=== PATIENT | female | born 1975 | race African-American/Black ===

== ENCOUNTER 2021-08-02 17:48 | Emergency (ER) | payer SELFPAY ==
[~2021-08-02] VITALS: Ht 167.6 cm; Wt 104.3 kg
[~2021-08-02 17:48] MED LIST: CLINDAMYCIN HC300 MG PO; MACROBID100 M1 PO; NKHM; PERCOCET 325 MG1 TA2 PO; PHENERGAN25 M1 PO; PYRIDIUM100 MG PO; TRAMADOL HCL50 MG PO; VICODIN 5/500 505 MG PO; WYMOX500 MG PO; ZOFRAN ODT4 MG SL
[2021-08-02] MEDS ORDERED: ASPIRIN CHEWABL81 MG PO (18:13)
[2021-08-06] MEDS ORDERED: HYDROCODONE-AC1 EAC2 PO (11:55)
== END 2021-08-03 00:40 | disposition home or self-care (01) ==
LOC: ED 17:48
DX: S82.852A Displaced trimalleolar fracture of left lower leg, initial encounter for closed fracture (principal); Z20.822 Contact with and (suspected) exposure to COVID-19; W10.8XXA Fall (on) (from) other stairs and steps, initial encounter; Y93.89 Activity, other specified; Y92.89 Other specified places as the place of occurrence of the external cause; Y99.8 Other external cause status

== ENCOUNTER → 2021-08-14 | Day surgery (SDC) | payer SELFPAY ==
[2021-08-06 11:53] VITALS: BP 132/79
[2021-08-14] VITALS (17 sets, daily range): BP systolic 114–153; BP diastolic 67–92
[~2021-08-14] VITALS: Ht 170.1 cm; Wt 101.2 kg
[~2021-08-14] MED LIST changes: +ASPIRIN CHEWABL81 MG PO; +HYDROCODONE-AC1 EAC2 PO
== END | disposition home or self-care (01) ==
LOC: SDC 08-06 11:00
PROVIDERS: ATTEND Podiatrist
DX: S82.852A Displaced trimalleolar fracture of left lower leg, initial encounter for closed fracture (principal); I10 Essential (primary) hypertension; F41.9 Anxiety disorder, unspecified; J45.909 Unspecified asthma, uncomplicated; F17.210 Nicotine dependence, cigarettes, uncomplicated; W19.XXXA Unspecified fall, initial encounter; Y93.89 Activity, other specified; Y92.89 Other specified places as the place of occurrence of the external cause; Y99.8 Other external cause status; Z20.822 Contact with and (suspected) exposure to COVID-19

== ENCOUNTER → 2021-08-21 | Outpatient (CLI) | payer SELFPAY | END | disposition home or self-care (01) | LOC: US 16:30 | PROVIDERS: ATTEND Nurse Practitioner | DX: M79.604 Pain in right leg (principal) ==

== ENCOUNTER 2022-04-19 08:02 | Emergency (ER) | payer MEDICAID ==
[~2022-04-19] VITALS: Ht 170.1 cm; Wt 90.7 kg
[2022-04-19 08:58] LABS: BASO # 0.1 10*3/uL (0.0-0.1); BASO % 0.4 % (0.0-1.0); EOS # 0.1 10*3/uL (0.0-0.4); EOS % 0.9 % (1.0-4.0); HEMATOCRIT 35.8 % (37.0-47.0); LYMPH # 0.8 10*3/uL (1.3-4.4); LYMPH % 5.1 % (27.0-41.0); MEAN CELL VOLUME 69.6 fl (81.0-99.0); MEAN CORPUSCULAR HGB 21.2 pg (27.0-31.0); MEAN CORPUSCULAR HGB CONC 30.4 g/dl (33.0-37.0); MEAN PLATELET VOLUME 9.2 fl (9.6-12.3); MONO # 0.7 10*3/uL (0.1-1.0); MONO % 4.4 % (3.0-9.0); NEUT # 14.2 10*3/uL (2.3-7.9); NEUT % 88.8 % (47.0-73.0); PLATELET COUNT AUTOMATED 279 10*3/uL (130-400); RED BLOOD COUNT 5.14 10*6/uL (4.10-5.10); RED CELL DISTRI WIDTH 20.4 % (0-14.5)
[2022-04-19 09:15] LABS: ALKALINE PHOSPHATASE 100 U/L (45-117); BUN 6 mg/dl (7-24); CREATININE 0.66 mg/dL (0.55-1.02); LIPASE 149 U/L (73-393); SGOT/AST 22 IU/L (3-35); SGPT/ALT 21 U/L (12-78); TOTAL PROTEIN 6.9 gm/dL (6.4-8.2)
[2022-04-19 09:23] LABS: IRON 21 ug/dL (50-170)
[2022-04-19 09:37] LABS: CHLORIDE 110 mmol/L (98-107); POTASSIUM 3.8 mmol/L (3.5-5.1); SODIUM 141 mmol/L (136-145)
[2022-04-19 09:50] LABS: BILIRUBIN Negative (Negative); BLOOD 1+ (Negative); CLARITY Cloudy (Clear); COLOR Yellow (Yellow); GLUCOSE Negative (Negative); KETONE Negative (Negative); LEUKO ESTERASE 2+ (Negative); NITRITE Negative (Negative); PH 5.5 (4.5-8.0)
[2022-04-19 10:01] LABS: BACTERIA 3+; EPITHELIAL CELLS 21-30; MUCOUS 1+; WBC 31-40 wbc/hpf (0-5)
[2022-04-19] MEDS ORDERED: IRON325 M1 PO (10:25)
[2022-04-19] MEDS ORDERED: TYLENOL325 M1 PO (10:26)
[2022-04-19] MEDS ORDERED: CYCLOBENZAPRINE10 MG PO (10:26)
[2022-04-19] MEDS ORDERED: NAPROXEN250 MG PO (10:26)
== END 2022-04-19 10:29 | disposition home or self-care (01) ==
LOC: ED 08:02
PROVIDERS: Emergency Medicine
DX: M54.9 Dorsalgia, unspecified (principal); D50.9 Iron deficiency anemia, unspecified; Z79.82 Long term (current) use of aspirin; Z90.89 Acquired absence of other organs

== ENCOUNTER 2025-03-27 14:08 | Inpatient (IN) | payer SELFPAY ==
[~2025-03-27] VITALS: Ht 170.1 cm; Wt 102.6 kg
[~2025-03-27 14:08] MED LIST changes: +CYCLOBENZAPRINE10 MG PO; +IRON325 M1 PO; +NAPROXEN250 MG PO; +TYLENOL325 M1 PO
[2025-03-27 14:24] VITALS: BP 184/96
[2025-03-27 14:53] LABS: BILIRUBIN Negative (Negative); BLOOD Negative (Negative); CLARITY Clear (Clear); COLOR Yellow (Yellow); KETONE Negative (Negative); LEUKO ESTERASE Trace (Negative); NITRITE Negative (Negative); PH 5.5 (4.5-8.0); SPECIFIC GRAVITY 1.010 (1.001-1.030); UROBILINOGEN 0.2 E.U./dl (0.0-1.0)
[2025-03-27 15:08] LABS: BACTERIA 1+; RBC 0-2 rbc/hpf (0-2); WBC 21-30 wbc/hpf (0-5)
[2025-03-27] MEDS ORDERED: SODIUM CHLORIDE 0.9% 1,000 ML IV ONE ×2 (15:35→18:10)
[2025-03-27 16:08] LABS: BASO # 0.1 10*3/uL (0.0-0.1); BASO % 0.8 % (0.0-1.0); EOS # 0.2 10*3/uL (0.0-0.4); EOS % 1.2 % (1.0-4.0); MEAN CELL VOLUME 78.1 fl (81.0-99.0); MEAN CORPUSCULAR HGB 26.5 pg (27.0-31.0); MEAN PLATELET VOLUME 10.6 fl (9.6-12.3); MONO # 1.4 10*3/uL (0.1-1.0); MONO % 8.2 % (3.0-9.0); NEUT # 13.8 10*3/uL (2.3-7.9); NEUT % 80.2 % (47.0-73.0); NUCLEATED RED BLOOD CELL 0.0 % (0.0-0.0); NUCLEATED RED BLOOD CELL 0.0 10*3/uL (0.0-0.0); PLATELET COUNT AUTOMATED 567 10*3/uL (130-400); RED CELL DISTRI WIDTH 16.1 % (0-14.5)
[2025-03-27 16:45] LABS: BUN 55.0 mg/dl (9-23)
[2025-03-27] MEDS ORDERED: AZITHROMYCIN 250 ML IV ONE (16:45)
[2025-03-27 17:54] LABS: BUN 50.0 mg/dl (9-23)
[2025-03-27 20:05] VITALS: BP 178/91
[2025-03-27] MEDS ORDERED: TEMAZEPAM 15 MG CAP PO PRN (20:20)
[2025-03-27] MEDS ORDERED: ACETAMINOPHEN 325 MG TAB PO PRN (20:20)
[2025-03-27] MEDS ORDERED: ACETAMINOPHEN 650 MG SUPP R PRN (20:20)
[2025-03-27] MEDS ORDERED: Ondansetron Hydrochloride 4 MG/2 ML VIAL IV PRN (20:20)
[2025-03-27] MEDS ORDERED: BISACODYL 5 MG TAB PO PRN (20:20)
[2025-03-27] MEDS ORDERED: BISACODYL 10 MG SUPP R PRN (20:20)
[2025-03-27] MEDS ORDERED: Acetaminophen/Hydrocodone 5 MG/325 MG TABLET PO PRN (20:20)
[2025-03-27] MEDS ORDERED: Albuterol Sulf/Ipratropium 3 ML VIAL NEB SCH (20:40)
[2025-03-27] MEDS ORDERED: AZITHROMYCIN 250 ML IV SCH (21:00)
[2025-03-27] MEDS ORDERED: Cefepime Hydrochloride 2 GM in SODIUM CHLORIDE 0.9% 50 ML IV SCH (21:00)
[2025-03-27 21:05] VITALS: BP 181/101
[2025-03-27] MEDS ORDERED: hydrALAZINE hydrochloride 20 MG/ML VIAL IV ONE (21:20)
[2025-03-27] MEDS ORDERED: HEPARIN SODIUM 5,000 UNIT/ML VIAL SC SCH (22:00)
[2025-03-27] MEDS ORDERED: GUAIFENESIN 600 MG TAB ER PO SCH (22:00)
[2025-03-27] MEDS ORDERED: Vancomycin Hydrochloride 1,000 MG in SODIUM CHLORIDE 0.9% 250 ML IV SCH (22:00)
[2025-03-27 22:20] VITALS: BP 183/92
[2025-03-28] VITALS: BP 138/61
[2025-03-28 06:39] LABS: MEAN CELL VOLUME 78.7 fl (81.0-99.0); MEAN CORPUSCULAR HGB 25.7 pg (27.0-31.0); MEAN PLATELET VOLUME 10.8 fl (9.6-12.3); NUCLEATED RED BLOOD CELL 0.0 % (0.0-0.0); NUCLEATED RED BLOOD CELL 0.0 10*3/uL (0.0-0.0); PLATELET COUNT AUTOMATED 557 10*3/uL (130-400); RED CELL DISTRI WIDTH 15.9 % (0-14.5)
[2025-03-28 07:04] LABS: BUN 49.0 mg/dl (9-23); FREE T4 0.95 ng/dl (0.89-1.76); LDL CHOLESTEROL 85.0 mg/dL (9-159); SGPT/ALT 54.0 U/L (5-49)
[2025-03-28 07:18] LABS: MANUAL DIFF REFLEX YES
[2025-03-28 08:00] VITALS: BP 168/82
[2025-03-28 08:08] LABS: BASOPHILS 1 % (0-1); PLATELET SUFFICIENCY HIGH (NORMAL)
[2025-03-28 08:45] LABS: VITAMIN D, 25-HYDROXY 13.1 ng/mL (30-100)
[2025-03-28] MEDS ORDERED: FUROSEMIDE 40 MG/4 ML VIAL IV SCH (10:00)
[2025-03-28] MEDS ORDERED: PRILOSEC20 M1 PO (11:19)
[2025-03-28 12:00] VITALS: BP 176/82
[2025-03-28] MEDS ORDERED: SODIUM CHLORIDE 0.9% 1,000 ML IV SCH (12:15)
[2025-03-28] MEDS ORDERED: OMEPRAZOLE 20 MG CAP PO SCH (15:20)
[2025-03-28] MEDS ORDERED: METOPROLOL SUCCINATE XR 25 MG TAB PO SCH (15:25)
[2025-03-28 16:00] VITALS: BP 172/87
[2025-03-28 20:00] VITALS: BP 160/77
[2025-03-29] VITALS: BP 167/81
[2025-03-29 05:06] LABS: ANTI-STREPTOLYSIN O AB 86.9 IU/mL (0.0-200.0)
[2025-03-29] MEDS ORDERED: OMEPRAZOLE 20 MG CAP PO SCH ×2 (06:00→10:00)
[2025-03-29 07:03] LABS: MEAN CELL VOLUME 80.0 fl (81.0-99.0); MEAN CORPUSCULAR HGB 25.9 pg (27.0-31.0); MEAN PLATELET VOLUME 10.7 fl (9.6-12.3); NUCLEATED RED BLOOD CELL 0.0 % (0.0-0.0); NUCLEATED RED BLOOD CELL 0.0 10*3/uL (0.0-0.0); PLATELET COUNT AUTOMATED 621 10*3/uL (130-400); RED CELL DISTRI WIDTH 16.0 % (0-14.5)
[2025-03-29 07:04] LABS: MANUAL DIFF REFLEX YES
[2025-03-29 07:17] LABS: BUN 43 mg/dl (9-23); SGPT/ALT 38 U/L (5-49)
[2025-03-29 07:57] LABS: PLATELET SUFFICIENCY HIGH (NORMAL)
[2025-03-29 08:00] VITALS: BP 173/80
[2025-03-29] MEDS ORDERED: BISACODYL 5 MG TAB PO ONE (09:35)
[2025-03-29] MEDS ORDERED: Cholecalciferol 5,000 IU CAP (125 MCG) PO SCH (10:00)
[2025-03-29] MEDS ORDERED: FOLIC ACID 1 MG TAB PO SCH (10:00)
[2025-03-29] MEDS ORDERED: METOPROLOL SUCCINATE XR 25 MG TAB PO ONE (11:25)
[2025-03-29 11:54] VITALS: BP 177/82
[2025-03-29 16:00] VITALS: BP 187/96
[2025-03-29 20:00] VITALS: BP 179/87
[2025-03-30] VITALS: BP 178/88
[2025-03-30 03:00] VITALS: BP 166/83
[2025-03-30 06:35] LABS: MEAN CELL VOLUME 81.3 fl (81.0-99.0); MEAN CORPUSCULAR HGB 26.0 pg (27.0-31.0); MEAN PLATELET VOLUME 10.7 fl (9.6-12.3); NUCLEATED RED BLOOD CELL 0.0 % (0.0-0.0); NUCLEATED RED BLOOD CELL 0.0 10*3/uL (0.0-0.0); PLATELET COUNT AUTOMATED 617 10*3/uL (130-400); RED CELL DISTRI WIDTH 16.1 % (0-14.5)
[2025-03-30 06:37] LABS: MANUAL DIFF REFLEX YES
[2025-03-30 07:04] LABS: BUN 33.0 mg/dl (9-23)
[2025-03-30 07:09] LABS: PLATELET SUFFICIENCY HIGH (NORMAL)
[2025-03-30 08:00] VITALS: BP 182/92
[2025-03-30] MEDS ORDERED: MAGNESIUM SULFATE 100 ML IV ONE (08:00)
[2025-03-30] MEDS ORDERED: METOPROLOL SUCCINATE XR 50 MG TAB PO SCH (10:00)
[2025-03-30 12:00] VITALS: BP 161/89
[2025-03-30] MEDS ORDERED: MAGNESIUM OXID400 MG PO (13:25)
[2025-03-30] MEDS ORDERED: METOPROLOL SUCC50 M1 PO (13:25)
[2025-03-30] MEDS ORDERED: NATURE'S BLEND F1 MG PO (13:25)
[2025-03-30] MEDS ORDERED: DOXYCYCLINE HY100 M3 PO (13:25)
[2025-03-30] MEDS ORDERED: NORVASC10 MG PO (13:25)
[2025-03-30] MEDS ORDERED: VITAMIN D3125 MC1 PO (13:25)
== END 2025-03-30 15:13 | disposition home or self-care (01) | DRG 871 ==
LOC: ED 14:08 → EDHOLD 19:06 → 4E 19:06
PROVIDERS: Nurse Practitioner Family; Student in an Organized Health Care Education/Training Program; ADMIT Internal Medicine; ATTEND Internal Medicine
DX: A41.9 Sepsis, unspecified organism (principal); J69.0 Pneumonitis due to inhalation of food and vomit; N17.0 Acute kidney failure with tubular necrosis; L03.116 Cellulitis of left lower limb; L03.312 Cellulitis of back [any part except buttock and flank]; J44.1 Chronic obstructive pulmonary disease with (acute) exacerbation; E87.1 Hypo-osmolality and hyponatremia; I10 Essential (primary) hypertension; F17.210 Nicotine dependence, cigarettes, uncomplicated; R65.20 Severe sepsis without septic shock; D75.839 Thrombocytosis, unspecified; D50.9 Iron deficiency anemia, unspecified; R19.7 Diarrhea, unspecified; K59.00 Constipation, unspecified; E55.9 Vitamin D deficiency, unspecified; E53.8 Deficiency of other specified B group vitamins; N05.9 Unspecified nephritic syndrome with unspecified morphologic changes; Z79.899 Other long term (current) drug therapy; Z79.01 Long term (current) use of anticoagulants; Z79.2 Long term (current) use of antibiotics; Z71.6 Tobacco abuse counseling; Z83.3 Family history of diabetes mellitus; Z80.8 Family history of malignant neoplasm of other organs or systems